=== PATIENT | male | born 1950 | race Caucasian/White ===

== ENCOUNTER 2018-06-05 15:17 | Emergency (ER) | payer OTHER ==
[~2018-06-05] VITALS: Ht 177.8 cm; Wt 100.7 kg
[2018-06-05 15:17] VITALS: BP 168/85
--- NOTE | 2018-06-05 15:17 | NUR ---
PATIENT BIB ALS TO ER BED 10.
--- NOTE | 2018-06-05 15:24 | NUR ---
68YO M PT BIB ALS C/O LACERATION TO L HAND S/P GLASS CUTTING HIM. CMS INTACT, CONTROLLED BLEEDING, +PMSC. NO OTHER MEDICAL CO AT THIS TIME. WILL CONTINUE TO MONITOR PMH--HIGH CHOLESTEROL NKA
--- NOTE | 2018-06-05 15:37 | NUR ---
DR MCKENZIE AT BEDSIDE FOR PT EVALUATION
[2018-06-05] MEDS ORDERED: BACITRACIN OINT 500 UNITS/GM PKT TP ONE (15:50)
[2018-06-05] MEDS ORDERED: LIDOCAINE 2% 100 MG/5 ML UJET TP ONE (15:50)
[2018-06-05 17:00] VITALS: BP 150/82
--- NOTE | 2018-06-05 17:00 | NUR ---
Patient discharged with v/s stable. Written and verbal after care instructions given and explained. Patient verbalized understanding. Ambulatory with steady gait. All questions addressed prior to discharge. Advised to follow up with PMD.
== END 2018-06-05 17:00 | disposition home or self-care (01) ==
LOC: MED 15:17
DX: S61.412A Laceration without foreign body of left hand, initial encounter (principal); W25.XXXA Contact with sharp glass, initial encounter; Y93.89 Activity, other specified; Y92.89 Other specified places as the place of occurrence of the external cause; Y99.8 Other external cause status
CPT/HCPCS: 99283